=== PATIENT | male | born 1975 | race Two or more races ===

== ENCOUNTER 2020-11-18 10:20 | Emergency (ER) | payer OTHER ==
[~2020-11-18] VITALS: Ht 170.2 cm; Wt 98.4 kg
[2020-11-18] MEDS ORDERED: METOCLOPRAMIDE10 MG PO (16:19)
[2020-11-18] MEDS ORDERED: MECLIZINE HCL25 MG PO (16:19)
== END 2020-11-18 16:27 | disposition home or self-care (01) ==
LOC: ER 10:20
DX: R42 Dizziness and giddiness (principal); Z03.818 Encounter for observation for suspected exposure to other biological agents ruled out